=== PATIENT | male | born 1965 | race Two or more races ===

== ENCOUNTER 2022-04-16 07:05 | Emergency (ER) | payer OTHER ==
[~2022-04-16] VITALS: Ht 167.6 cm; Wt 81.6 kg
--- NOTE | 2022-04-16 07:17 | NUR ---
BIBRA 839 FOR GENERALIZED LOWER ABD PAIN 6/10 SHARP PAIN THAT COMES AND GOES. +NASUEA WITHOUT VOMITING, DIARRHEA, AND DIZZINES. SYMPTOMS NOTED THIS AM UPON WAKING UP. PT AWAKE AND ALERT X4 BREATHING UNLABORED, V/S WNL AND AFEBRILE AT TRIAGE.
--- NOTE | 2022-04-16 07:53 | NUR ---
R A/C GAUGE 20, MONITORING VS AT THIS TIME, PT RELAXING CALM COOPERATIVE
[2022-04-16 07:58] LABS: BASOPHILS % (AUTO) 0.3 % (0.0-2.0); EOSINOPHILS % (AUTO) 0.8 % (0.0-6.0); HEMATOCRIT 40 % (39-51); HEMOGLOBIN 12.9 g/dL (13.5-17.5); LYMPHOCYTES # (AUTO) 1.9 K/uL (0.8-4.8); LYMPHOCYTES % (AUTO) 18.9 % (20.0-44.0); MEAN CORPUSCULAR HGB CONC 33 g/dl (31.0-36.0); MEAN CORPUSCULAR VOLUME 83 fL (80-96); MONOCYTES # (AUTO) 0.4 K/uL (0.1-1.30); NEUTROPHILS # (AUTO) 7.8 K/uL (1.8-8.9); PLATELET COUNT (AUTO) 300 K/uL (150-450); RED BLOOD CELL COUNT(AUTO) 4.74 MIL/uL (4.5-6.0); WHITE BLOOD COUNT (AUTO) 10.3 K/uL (4.3-11.0)
[2022-04-16] MEDS ORDERED: ONDANSETRON HCL/PF 4 MG/2 ML VIAL IV ONE (08:00)
[2022-04-16 08:01] LABS: CALCIUM, SERUM 9.2 mg/dL (8.5-10.1); CREATININE 1.1 mg/dL (0.6-1.3); POTASSIUM 4.1 mmol/L (3.5-5.1)
[2022-04-16 08:08] LABS: ALBUMIN 3.9 g/dL (3.4-5.0); BILIRUBIN,TOTAL 0.4 mg/dL (0.2-1.0); TOTAL PROTEIN, SERUM 7.7 g/dL (6.4-8.2)
[2022-04-16] MEDS ORDERED: ONDANSETRON HCL/PF 4 MG/2 ML VIAL ONE (08:17)
--- NOTE | 2022-04-16 09:30 | NUR ---
IV removed. Catheter intact and site benign. Pressure and 4x4 applied to site. No bleeding noted.
[2022-04-16 09:40] VITALS: BP 132/74
--- NOTE | 2022-04-16 09:40 | NUR ---
Patient discharged to home in stable condition. Written and verbal after care instructions given. Patient verbalizes understanding of instruction.
== END 2022-04-16 09:41 | disposition home or self-care (01) ==
LOC: ER 07:12
DX: R10.13 Epigastric pain (principal); R10.11 Right upper quadrant pain; R42 Dizziness and giddiness; I10 Essential (primary) hypertension; E11.9 Type 2 diabetes mellitus without complications; Z88.8 Allergy status to other drugs, medicaments and biological substances
CPT/HCPCS: 99284; 96374; 93005; 85025; 83690; 36415; 80053; 84484; J2405